=== PATIENT | male | born 1980 | race Caucasian/White ===

== ENCOUNTER 2016-05-06 20:20 | Emergency (ER) | payer SELFPAY ==
--- NOTE | 2016-05-06 21:18 | ER Document Report ---
ED Medical Screen (RME) - General Chief Complaint: Hand Swelling Stated Complaint: SWOLLEN LEFT HAND Notes: 35 yo male c/o pain and swelling to left hand x 3 day + induration and fluctuance to left dorsal hand. + lymphangitis left volar forearm + hx/o MRSA TRAVEL OUTSIDE OF THE [place] IN LAST 30 DAYS: No - Related Data Allergies/Adverse Reactions: No Known Allergies Allergy (Verified 12/25/14 12:46) Past Medical History - Past Medical History Cardiac Medical History: Reports: Hx Hypertension - doesnt take med regularly in past 2 years Pulmonary Medical History: Denies: Hx Asthma Musculoskeltal Medical History: Reports Hx Arthritis - gout, Reports Hx Musculoskeletal Deformity, Reports Hx Musculoskeletal Trauma - Right knee Traumatic Medical History: Reports: Hx Fractures - Right knee - Immunizations Immunizations up to date: Yes Hx Diphtheria, Pertussis, Tetanus Vaccination: Yes - Not UTD Physical Exam - Vital signs Vitals: Temp Pulse Resp BP Pulse Ox 98.3 F 57 L 18 133/92 H 100 05/06/16 20:56 05/06/16 20:56 05/06/16 20:56 05/06/16 20:56 05/06/16 20:56 Course - Vital Signs Vital signs: Temp Pulse Resp BP Pulse Ox 98.3 F 57 L 18 133/92 H 100 05/06/16 20:56 05/06/16 20:56 05/06/16 20:56 05/06/16 20:56 05/06/16 20:56
[2016-05-06 21:43] LABS: ABSOLUTE EOSINOPHILS # (AUTO) 0.1 10^3/uL (0.0-0.6); ABSOLUTE LYMPHOCYTES (AUTO) 3.9 10^3/uL (0.5-4.7); ABSOLUTE NEUT (AUTO) 8.3 10^3/uL (1.7-8.2); BASOPHILS % (AUTO) 0.3 % (0-2); HEMATOCRIT 42.3 % (37.9-51.0); HEMOGLOBIN 14.4 g/dL (13.5-17.0); HGB HCT DIFFERENCE 0.9; LYMPHOCYTES % (AUTO) 29.2 % (13-45); MEAN CORPUSCULAR HEMOGLOBIN 27.8 pg (27.0-33.4); MEAN CORPUSCULAR VOLUME 82 fl (80-97); MONOCYTES % (AUTO) 7.4 % (3-13); RED BLOOD COUNT 5.18 10^6/uL (4.35-5.55); RED CELL DISTRIBUTION WIDTH 14.3 % (11.5-14.0); SEGMENTED NEUTROPHILS % (AUTO) 62.1 % (42-78); WHITE BLOOD COUNT 13.4 10^3/uL (4.0-10.5)
[2016-05-07] MEDS ORDERED: SULFAMETHOXAZOLE/TRIMETHOPRIM 800-160 MG TABLET PO ONE (00:49)
[2016-05-07] MEDS ORDERED: CEPHALEXIN 500 MG CAPSULE PO ONE (00:49)
[2016-05-07] MEDS ORDERED: COLCHICINE 0.6 MG TABLET PO ONE ×2 (00:49→00:50)
[2016-05-07] MEDS ORDERED: HYDROCODONE/ACETAMINOPHEN 5-325 MG 6 TAB/DSPK PO PRN (00:53)
--- NOTE | 2016-05-07 00:54 | ER Document Report ---
ED General - General Chief Complaint: Abscess Stated Complaint: SWOLLEN LEFT HAND Notes: Patient is a 35-year-old male with past medical history of hypertension who presents with 3 days of a progressively worsening area of swelling and erythema on his left hand. The area became larger today and he began to notice spreading redness up his arm which is what prompted him to come to the emergency department today. States he does have a history of MRSA in the past. He has not had any constitutional symptoms or fever. He does describe areas being painful and that pain is described as a severe, constant, sharp pain. Nothing improves the pain and touching the area worsens the pain. He has not seen his primary care doctor regarding today's concern. TRAVEL OUTSIDE OF THE [place] IN LAST 30 DAYS: No - Related Data Allergies/Adverse Reactions: No Known Allergies Allergy (Verified 12/25/14 12:46) Past Medical History - General Information source: Patient - Social History Smoking Status: Never Smoker Chew tobacco use (# tins/day): No Frequency of alcohol use: Rare Drug Abuse: None Lives with: Spouse/Significant other Family History: CAD, Hypertension Patient has suicidal ideation: No Patient has homicidal ideation: No - Past Medical History Cardiac Medical History: Reports: Hx Hypertension - doesnt take med regularly in past 2 years Pulmonary Medical History: Denies: Hx Asthma Renal/ Medical History: Denies: Hx Peritoneal Dialysis Musculoskeltal Medical History: Reports Hx Arthritis - gout, Reports Hx Musculoskeletal Deformity, Reports Hx Musculoskeletal Trauma - Right knee Traumatic Medical History: Reports: Hx Fractures - Right knee - Immunizations Immunizations up to date: Yes Hx Diphtheria, Pertussis, Tetanus Vaccination: Yes - Not UTD Review of Systems - Review of Systems Notes: Constitutional: Negative for fever. HENT: Negative for sore throat. Eyes: Negative for visual changes. Cardiovascular: Negative for chest pain. Respiratory: Negative for shortness of breath. Gastrointestinal: Negative for abdominal pain, vomiting or diarrhea. Genitourinary: Negative for dysuria. Musculoskeletal: Negative for back pain. Skin: Positive for rash. Neurological: Negative for headaches, weakness or numbness. 10 point ROS negative except as marked above and in HPI. Physical Exam - Vital signs Vitals: Temp Pulse Resp BP Pulse Ox 98.3 F 57 L 18 133/92 H 100 05/06/16 20:56 05/06/16 20:56 05/06/16 20:56 05/06/16 20:56 05/06/16 20:56 Interpretation: Bradycardic Notes: PHYSICAL EXAMINATION: GENERAL: Well-appearing, well-nourished and in no acute distress. HEAD: Atraumatic, normocephalic. EYES: Pupils equal round and reactive to light, extraocular movements intact, sclera anicteric, conjunctiva are normal. ENT: nares patent, oropharynx clear without exudates. Moist mucous membranes. NECK: Normal range of motion, supple without lymphadenopathy LUNGS: Breath sounds clear to auscultation bilaterally and equal. No wheezes rales or rhonchi. HEART: Regular rate and rhythm without murmurs ABDOMEN: Soft, nontender, normoactive bowel sounds. No guarding, no rebound. No masses appreciated. EXTREMITIES: Normal range of motion, no pitting or edema. No cyanosis. NEUROLOGICAL: No focal neurological deficits. Moves all extremities spontaneously and on command. PSYCH: Normal mood, normal affect. SKIN: Warm, Dry, normal turgor, there is a 1 x 2 fluctuant mass on the dorsal surface of the left hand between the thumb and first digit. There is a spreading redness up the proximal one third of the forearm Course - Re-evaluation Re-evalutation: 05/07/16 00:51 Patient presents with a left dorsal hand abscess which was incised and drained at the bedside. He does have a cellulitis that is spreading up the proximal one third of the forearm. He will be started on cephalexin and TMP-SMX. Patient is also complaining of gout in his right toe. He was started on colchicine. I do not suspect a septic joint based on exam and history.At this time will discharge with return precautions and follow-up recommendations. Verbal discharge instructions given a the bedside and opportunity for questions given. Medication warnings reviewed. Patient is in agreement with this plan and has verbalized understanding of return precautions and the need for primary care follow-up in the next 24-72 hours. - Vital Signs Vital signs: Temp Pulse Resp BP Pulse Ox 98.4 F 62 16 128/68 H 99 05/07/16 01:17 05/07/16 01:17 05/07/16 01:17 05/07/16 01:17 05/07/16 01:17 - Laboratory Result Diagrams: 05/06/16 21:25 Laboratory results interpreted by me: 05/06/16 21:25 WBC 13.4 H RDW 14.3 H Absolute Neutrophils 8.3 H Procedures - Incision and Drainage Left Hand Type: Simple Anesthetic type: 1% Lidocaine mL's of anesthetic: 4 Blade size: 11 I&D procedure: Betadine prep applied Incision Method: Incision made by scalpel Amount/type of drainage: 10 mL of purulent drainage Discharge - Discharge Clinical Impression: Abscess of left hand, Left arm cellulitis Condition: Good Disposition: HOME, SELF-CARE Additional Instructions: The rash is likely due to infection of your skin. You need to take the antibiotics as prescribed. Do not stop even if the rash goes away until you have completed all the antibiotics. The area of redness was traced out here in the emergency department with a marking pen. You need to return to emergency department if the redness spreads outside of this area by more than 2 cm in any direction. You should also return if you develop fevers with temperature greater than 101, persistent vomiting, worsening pain, or have any other symptoms that are concerning to you. Prescriptions: Cephalexin Monohydrate [Keflex 500 mg Capsule] 500 mg PO QID #20 capsule Sulfamethoxazole/Trimethoprim [Bactrim Ds Tablet] 2 tab PO BID #20 tablet
[2016-05-07 02:46] VITALS: BP 128/68
== END 2016-05-07 01:20 | disposition home or self-care (01) ==
LOC: ER 20:20
PROC: 0H9GXZZ Drainage of Left Hand Skin, External Approach (ICD-10-PCS; principal; 2016-05-06)
DX: L02.512 Cutaneous abscess of left hand (principal); L03.114 Cellulitis of left upper limb; Z86.14 Personal history of Methicillin resistant Staphylococcus aureus infection; M10.9 Gout, unspecified; R00.1 Bradycardia, unspecified; I10 Essential (primary) hypertension
CPT/HCPCS: 36415; 85025; 99283

== ENCOUNTER 2016-10-20 12:19 | Emergency (ER) | payer SELFPAY ==
--- NOTE | 2016-10-20 13:27 | RADIOLOGY REPORT (SQ) ---
EXAM DESCRIPTION: FOOT RIGHT COMPLETE COMPLETED DATE/TIME: 10/20/2016 12:49 pm REASON FOR STUDY: right heel pain COMPARISON: None. 01/19/2008 NUMBER OF VIEWS: Three views. TECHNIQUE: AP, lateral and oblique without weight bearing radiographic images acquired of the right foot. LIMITATIONS: None. FINDINGS: MINERALIZATION: Normal. BONES: No acute fracture or dislocation. No worrisome bone lesions. Plantar enthesophyte. JOINTS: No erosions. No darrick-articular osteopenia. No chondrocalcinosis. SOFT TISSUES: No swelling. No calcifications. OTHER: No other significant finding. IMPRESSION: NEGATIVE STUDY OF THE RIGHT FOOT. NO EXPLANATION FOR PAIN. TECHNICAL DOCUMENTATION: JOB ID: [id number] [employer]- All Rights Reserved
[2016-10-20 13:46] VITALS: BP 126/80
--- NOTE | 2016-10-20 13:46 | ER Document Report ---
ED Extremity Problem, Lower - General Chief Complaint: Foot Pain Stated Complaint: RIGHT FOOT PAIN Time Seen by Provider: 10/20/16 12:29 Mode of Arrival: Ambulatory Information source: Patient Notes: 36-year-old male presents to ED for complaint of right heel pain. He states he jumped off of a walk board yesterday from about 4 feet landing on his heels and has had pain since. TRAVEL OUTSIDE OF THE [place] IN LAST 30 DAYS: No - HPI Patient complains to provider of: Injury, Pain. No: Swelling Location: Foot - Right heel Occurred: Yesterday Where: Public place Onset/Duration: Gradual, Persistent Quality of pain: Sharp Severity: Mild Pain Level: 2 Context: Other - Jumped off a wall board yesterday landing on his feet Recent injury: Possibly Associated symptoms: Painful ambulation Exacerbated by: Movement, Walking Relieved by: Elevation, Ice, Rest - Related Data Allergies/Adverse Reactions: No Known Allergies Allergy (Verified 12/25/14 12:46) Past Medical History - General Information source: Patient - Social History Smoking Status: Never Smoker Cigarette use (# per day): No Chew tobacco use (# tins/day): No Smoking Education Provided: No Frequency of alcohol use: None Drug Abuse: None Lives with: Parents Family History: CAD, Hypertension Patient has suicidal ideation: No Patient has homicidal ideation: No - Past Medical History Cardiac Medical History: Reports: Hx Heart Attack, Hx Hypertension - doesnt take med regularly in past 2 years Pulmonary Medical History: Reports: None EENT Medical History: Reports: None Neurological Medical History: Reports: None Endocrine Medical History: Reports: None Renal/ Medical History: Reports: None Malignancy Medical History: Reports None GI Medical History: Reports: None Musculoskeltal Medical History: Reports Hx Arthritis - gout, Reports Hx Musculoskeletal Deformity, Reports Hx Musculoskeletal Trauma - Right knee Skin Medical History: Reports None Psychiatric Medical History: Reports: None Traumatic Medical History: Reports: Hx Fractures - Right knee Infectious Medical History: Reports: None Past Surgical History: Reports: Hx Cardiac Catheterization - Immunizations Immunizations up to date: Yes Hx Diphtheria, Pertussis, Tetanus Vaccination: Yes - Not UTD Review of Systems - Review of Systems Constitutional: No symptoms reported EENT: No symptoms reported Cardiovascular: No symptoms reported Respiratory: No symptoms reported Gastrointestinal: No symptoms reported Genitourinary: No symptoms reported Male Genitourinary: No symptoms reported Musculoskeletal: Other - Pain in right heel Skin: No symptoms reported Hematologic/Lymphatic: No symptoms reported Neurological/Psychological: No symptoms reported -: Yes All other systems reviewed and negative Physical Exam - Vital signs Vitals: Temp Pulse Resp BP Pulse Ox 97.7 F 74 12 165/87 H 97 10/20/16 12:30 10/20/16 12:30 10/20/16 12:30 10/20/16 12:30 10/20/16 12:30 Interpretation: Normal - General General appearance: Appears well, Alert - HEENT Head: Normocephalic, Atraumatic Eyes: Normal Pupils: PERRL - Respiratory Respiratory status: No respiratory distress Chest status: Nontender Breath sounds: Normal Chest palpation: Normal - Cardiovascular Rhythm: Regular Heart sounds: Normal auscultation Murmur: No - Abdominal Inspection: Normal Distension: No distension Bowel sounds: Normal Tenderness: Nontender Organomegaly: No organomegaly - Back Back: Normal, Nontender - Extremities General upper extremity: Normal inspection, Nontender, Normal color, Normal ROM , Normal temperature General lower extremity: Normal inspection, Normal color, Normal ROM, Normal temperature, Normal weight bearing. No: Coy's sign Ankle: No: Tender, Abrasion, Deformity, Ecchymosis, Edema, Instability, Laceration, Limited ROM, Positive Mendes's test, Unable to bear weight Foot: Tender, No evidence of FB. No: Abrasion, Deformity, Ecchymosis, Edema, Instability, Laceration, Metatarsal compress. pain, Nail injury, Navicular tenderness, Puncture wound, Tender 5th metatarsal, Unable to bear weight - Neurological Neuro grossly intact: Yes Cognition: Normal Orientation: AAOx4 Дмитрий Coma Scale Eye Opening: Spontaneous [place] Coma Scale Verbal: Oriented [place] Coma Scale Motor: Obeys Commands Дмитрий Coma Scale Total: 15 Speech: Normal Motor strength normal: LUE, RUE, LLE, RLE Sensory: Normal - Psychological Associated symptoms: Normal affect, Normal mood - Skin Skin Temperature: Warm Skin Moisture: Dry Skin Color: Normal Course - Re-evaluation Re-evalutation: 10/20/16 22:30 Discussed x-ray with patient and written report given to patient to follow-up with orthopedics or a sample worker. Patient was discharged home. - Vital Signs Vital signs: Temp Pulse Resp BP Pulse Ox 98.5 F 59 L 14 126/80 H 97 10/20/16 13:43 10/20/16 13:43 10/20/16 13:43 10/20/16 13:43 10/20/16 13:43 - Diagnostic Test Radiology reviewed: Image reviewed, Reports reviewed Discharge - Discharge Clinical Impression: Right foot pain Contusion Qualifiers: Encounter type: initial encounter Contusion area: foot Laterality: right Qualified Code(s): S90.31XA - Contusion of right foot, initial encounter Condition: Stable Disposition: HOME, SELF-CARE Instructions: Exercises for the Foot Muscles ([facility]) Additional Instructions: CONTUSION: Your injury has resulted in a contusion -- a crushing of the deep tissues. No injury to important structures was detected during the physician's exam. Contusions vary in the amount of pain they cause, and in the length of time required for healing. Typically, the area will become bruised, and will remain painful to touch for two or three weeks. However, most patients are back to working and playing within a few days. After the initial period of rest and cold-packs, your symptoms (together with the doctor's recommendations) will determine how rapidly you can get back to full activity. Usually this means "do what feels okay, but don't do things that hurt." If re-examination was recommended, it's important to follow up as instructed. Call the doctor or return any time if pain increases, if swelling becomes severe, if you develop numbness or weakness in an injured extremity, or if any other alarming symptoms occur. USE OF TYLENOL (ACETAMINOPHEN): Acetaminophen may be taken for pain relief or fever control. It's much safer than aspirin, offering a wider range of "safe" dosages. It is safe during . Some brand names are Tylenol, Panadol, Datril, Anacin 3, Tempra, and Liquiprin. Acetaminophen can be repeated every four hours. The following are maximum recommended dosages: WEIGHT Dose Drops Elixir Chewable( 80mg) (LBS.) drprs=droppers tsp=teaspoon 6 40 mg 0.4 ml (1/2) 6-11 80 mg 0.8 ml (full) tsp 1 tab 12-16 120 mg 1 1/2 drprs 3/4 tsp 1 1/2 tabs 17-23 160 mg 2 drprs 1 tsp 2 tabs 24-30 240 mg 3 drprs 1 1/2 tsp 3 tabs 30-35 320 mg 2 tsp 4 tabs 36-41 360 mg 2 1/4 tsp 4 1/2 tabs 42-47 400 mg 2 1/2 tsp 5 tabs 48-53 480 mg 3 tsp 6 tabs 54-59 520 mg 3 1/4 tsp 6 1/2 tabs 60-64 560 mg 3 1/2 tsp 7 tabs 65-70 600 mg 3 3/4 tsp 7 1/2 tabs 71-76 640 mg 4 tsp 8 tabs 77-82 720 mg 4 1/2 tsp 9 tabs 83-88 800 mg 5 tsp 10 tabs >89 pounds or adults 650 mg to 900 mg Acetaminophen can be repeated every four hours. Maximum dose not to exceed 4000 mg a day. These maximum recommended dosages are slightly higher than the dosages written on the product container, but these dosages are very safe and below the toxic dosage for acetaminophen. ICE & ELEVATION: Apply ice packs frequently against the painful area. Many different schedules are recommended, such as "20 minutes on, 20 minutes off" or "one hour ice, two hours rest." If you need to work, you may need to go longer between ice treatments. You should plan to have the area ice packed AT LEAST one- fourth of the time. The ice should be applied over the wrap, tape, or splint, or over a layer of cloth -- not directly against the skin. Some ice bags have a built-in cloth and can be put directly on the skin. Your injured part should be elevated as much as possible over the next 48 hours. Try to keep the injury above the level of the heart. Avoid use of the injured area. Elevation and rest will decrease the swelling. USE OF [id number] IBUPROFEN: Ibuprofen (Advil, Nuprin, Medipren, Motrin IB) is a medication for fever and pain control. In addition, it has anti- inflammatory effects which may be beneficial, especially in the treatment of injuries. It's best to take ibuprofen with food. Persons with ulcer disease or allergy to aspirin should notify their physician of this before taking ibuprofen. Ibuprofen can be given every four to six hours, for a total of four doses daily. Age Pain or fever dose Antiinflammatory dose 6-8 yr 200 mg (1 tab) 200 mg (1 tab) 9-11 yr 200 mg (1 tab) 200-400 mg (1-2 tab) 11-14 yr 200-400 mg (1-2 tab) 400 mg (2 tab) 15-adult 400 mg (2 tab) 600 mg (3 tab) FOLLOW-UP CARE: If you have been referred to a physician for follow-up care, call the physician s office for an appointment as you were instructed or within the next two days. If you experience worsening or a significant change in your symptoms, notify the physician immediately or return to the Emergency Department at any time for re-evaluation. Prescriptions: Ibuprofen 800 mg PO Q8HP PRN #20 tablet PRN Reason: Forms: Elevated Blood Pressure Referrals: SYDNEY FINN MD [Primary Care Provider] - Follow up as needed
== END 2016-10-20 13:50 | disposition home or self-care (01) ==
LOC: ER 12:19
DX: S90.31XA Contusion of right foot, initial encounter (principal); M79.671 Pain in right foot; W17.89XA Other fall from one level to another, initial encounter; Y92.89 Other specified places as the place of occurrence of the external cause; I25.2 Old myocardial infarction
CPT/HCPCS: 99283

== ENCOUNTER 2017-05-04 09:18 | Observation (INO) | payer SELFPAY ==
[2017-05-04] MEDS ORDERED: ONDANSETRON HCL INJ/PF 4 MG/2 ML SDV IV ONE (10:12)
--- NOTE | 2017-05-04 10:14 | ER Document Report ---
ED Medical Screen (RME) - General Chief Complaint: Abdominal Pain Stated Complaint: STOMACH PAIN Time Seen by Provider: 05/04/17 10:09 Notes: RME DISCLOSURE I have seen this patient as part of a Rapid Medical Evaluation and, if applicable, placed any initially appropriate orders. The patient will be seen and fully evaluated, including a full history and physical exam, by a provider ( in Main ED or Fast Track) when a room becomes available. 36-year-old male here with complaints of periumbilical pain that started yesterday along with nausea and vomiting but no diarrhea. Since onset, the pain has migrated from around the bellybutton down to the right lower quadrant. Pain is constant. Pain is worse with walking and laying flat as well as the bumps/potholes in the road during the car ride over. His pain is no longer near his belly button at this time and is now in his right lower quadrant. He does still have his appendix. TRAVEL OUTSIDE OF THE [place] IN LAST 30 DAYS: No - Related Data Allergies/Adverse Reactions: No Known Allergies Allergy (Verified 12/25/14 12:46) Past Medical History - Social History Chew tobacco use (# tins/day): No Frequency of alcohol use: Social Drug Abuse: Cocaine - Past Medical History Cardiac Medical History: Reports: Hx Heart Attack - x2 08/2016, Hx Hypertension - doesnt take med regularly in past 2 years Pulmonary Medical History: Denies: Hx Asthma Renal/ Medical History: Denies: Hx Peritoneal Dialysis Musculoskeltal Medical History: Reports Hx Arthritis - gout, Reports Hx Musculoskeletal Deformity, Reports Hx Musculoskeletal Trauma - Right knee Traumatic Medical History: Reports: Hx Fractures - Right knee Past Surgical History: Reports: Hx Cardiac Catheterization - Immunizations Immunizations up to date: Yes Hx Diphtheria, Pertussis, Tetanus Vaccination: Yes - Not UTD Physical Exam - Vital signs Vitals: Temp Pulse Resp BP Pulse Ox 98.1 F 83 20 141/90 H 97 05/04/17 09:21 05/04/17 09:21 05/04/17 09:21 05/04/17 09:21 05/04/17 09:21 Course - Vital Signs Vital signs: Temp Pulse Resp BP Pulse Ox 98.1 F 83 20 141/90 H 97 05/04/17 09:21 05/04/17 09:21 05/04/17 09:21 05/04/17 09:21 05/04/17 09:21
[2017-05-04] MEDS ORDERED: NORMAL SALINE 1000 ML 1,000 ML IV ONE ×2 (10:39→12:52)
[2017-05-04 10:47] LABS: APPEARANCE,URINE CLEAR; BILIRUBIN,URINE NEGATIVE (NEGATIVE); COLOR,URINE YELLOW; GLUCOSE, URINE NEGATIVE (NEGATIVE); KETONES,URINE NEGATIVE (NEGATIVE); LEUKOCYTE ESTERASE,URINE NEGATIVE (NEGATIVE); NITRITE,URINE NEGATIVE (NEGATIVE); PROTEIN,URINE NEGATIVE (NEGATIVE); URINE SPECIFIC GRAVITY 1.018; UROBILINOGEN,URINE NEGATIVE mg/dL (<2.0)
[2017-05-04] MEDS ORDERED: VECURONIUM BROMIDE INJ 10 MG VIAL IV ONE (10:49)
[2017-05-04] MEDS ORDERED: NEOSTIGMINE METHYLSULFATE 10 MG/10 ML VIAL ONE (10:49)
[2017-05-04] MEDS ORDERED: GLYCOPYRROLATE INJ 0.4 MG/2 ML VIAL ONE (10:49)
[2017-05-04] MEDS ORDERED: SUCCINYLCHOLINE CHLORIDE INJ 200 MG/10 ML VIAL ONE (10:49)
[2017-05-04 11:42] LABS: ABSOLUTE BASOPHILS # (AUTO) 0.1 10^3/uL (0.0-0.2); ABSOLUTE LYMPHOCYTES (AUTO) 1.6 10^3/uL (0.5-4.7); ABSOLUTE MONOCYTES (AUTO) 0.9 10^3/uL (0.1-1.4); ABSOLUTE NEUT (AUTO) 10.7 10^3/uL (1.7-8.2); BASOPHILS % (AUTO) 0.4 % (0-2); EOSINOPHILS % (AUTO) 0.3 % (0-6); HEMATOCRIT 38.7 % (37.9-51.0); HEMOGLOBIN 13.4 g/dL (13.5-17.0); LYMPHOCYTES % (AUTO) 11.8 % (13-45); MEAN CORPUSCULAR HEMOGLOBIN 28.2 pg (27.0-33.4); MEAN CORPUSCULAR HGB CONC 34.7 g/dL (32.0-36.0); MEAN CORPUSCULAR VOLUME 81 fl (80-97); MONOCYTES % (AUTO) 6.5 % (3-13); PLATELET COUNT 249 10^3/uL (150-450); RED BLOOD COUNT 4.76 10^6/uL (4.35-5.55); RED CELL DISTRIBUTION WIDTH 14.5 % (11.5-14.0); TOTAL CELLS COUNTED % (AUTO) 100 %; WHITE BLOOD COUNT 13.2 10^3/uL (4.0-10.5)
[2017-05-04 12:03] LABS: ALANINE AMINOTRANSFERASE 28 U/L (21-72); ALKALINE PHOSPHATASE 74 U/L (38-126); ANION GAP 8 (5-19); ASPARTATE AMINO TRANSFERASE 16 U/L (17-59); BILIRUBIN,DIRECT 0.3 mg/dL (0.0-0.4); BILIRUBIN,TOTAL 0.7 mg/dL (0.2-1.3); BLOOD UREA NITROGEN 10 mg/dL (7-20); CALCIUM 9.5 mg/dL (8.4-10.2); CARBON DIOXIDE 29 mmol/L (22-30); CHLORIDE 101 mmol/L (98-107); GLUCOSE 97 mg/dL (75-110); LIPASE 55.4 U/L (23-300); POTASSIUM 3.6 mmol/L (3.6-5.0); SODIUM 138.4 mmol/L (137-145); TOTAL PROTEIN 6.9 g/dL (6.3-8.2)
--- NOTE | 2017-05-04 12:06 | ER Document Report ---
ED GI/ - General Chief Complaint: Abdominal Pain Stated Complaint: STOMACH PAIN Time Seen by Provider: 05/04/17 10:09 Mode of Arrival: Ambulatory Information source: Patient Notes: 36-year-old male complaining of yesterday onset of periumbilical abdominal pain , nausea, decreased appetite. The pain persisted and radiated to the right lower quadrant. He has had vomiting. No diarrhea or constipation. No fever. He still has his appendix. No hematuria or testicular pain. Recent IV cocaine use. TRAVEL OUTSIDE OF THE [place] IN LAST 30 DAYS: No - Related Data Allergies/Adverse Reactions: No Known Allergies Allergy (Verified 12/25/14 12:46) Past Medical History - General Information source: Patient - Social History Smoking Status: Never Smoker Chew tobacco use (# tins/day): No Frequency of alcohol use: Social Drug Abuse: Cocaine Lives with: Family Family History: CAD, Hypertension Patient has suicidal ideation: No Patient has homicidal ideation: No - Past Medical History Cardiac Medical History: Reports: Hx Heart Attack - x2 08/2016, Hx Hypertension - doesnt take med regularly in past 2 years Renal/ Medical History: Denies: Hx Peritoneal Dialysis Musculoskeltal Medical History: Reports Hx Arthritis - gout, Reports Hx Musculoskeletal Deformity, Reports Hx Musculoskeletal Trauma - Right knee Traumatic Medical History: Reports: Hx Fractures - Right knee Past Surgical History: Reports: Hx Cardiac Catheterization - Immunizations Immunizations up to date: Yes Hx Diphtheria, Pertussis, Tetanus Vaccination: Yes - Not UTD Review of Systems - Review of Systems Constitutional: No symptoms reported EENT: No symptoms reported Cardiovascular: No symptoms reported Respiratory: No symptoms reported Gastrointestinal: See HPI Genitourinary: No symptoms reported Male Genitourinary: No symptoms reported Musculoskeletal: No symptoms reported Skin: No symptoms reported Hematologic/Lymphatic: No symptoms reported Neurological/Psychological: No symptoms reported Physical Exam - Vital signs Vitals: Temp Pulse Resp BP Pulse Ox 98.1 F 83 20 141/90 H 97 05/04/17 09:21 05/04/17 09:21 05/04/17 09:21 05/04/17 09:21 05/04/17 09:21 Interpretation: Normal - General General appearance: Appears well, Alert - HEENT Head: Normocephalic, Atraumatic Eyes: Normal Conjunctiva: Normal Pupils: PERRL Mucous membranes: Normal Pharynx: Normal Neck: Supple. No: Lymphadenopathy, Thyromegally - Respiratory Respiratory status: No respiratory distress Chest status: Nontender Breath sounds: Normal Chest palpation: Normal - Cardiovascular Rhythm: Regular Heart sounds: Normal auscultation Murmur: No - Abdominal Inspection: Normal Distension: No distension Bowel sounds: Normal Tenderness: McBurney's point, Guarding Organomegaly: No organomegaly. No: Hepatomegaly, Splenomegaly - Back Back: Normal, Nontender. No: CVA tenderness - Extremities General upper extremity: Normal inspection, Nontender, Normal color, Normal ROM , Normal temperature General lower extremity: Normal inspection, Nontender, Normal color, Normal ROM , Normal temperature, Normal weight bearing. No: Coy's sign - Neurological Neuro grossly intact: Yes Cognition: Normal Orientation: AAOx4 Дмитрий Coma Scale Eye Opening: Spontaneous [place] Coma Scale Verbal: Oriented [place] Coma Scale Motor: Obeys Commands [place] Coma Scale Total: 15 Speech: Normal Motor strength normal: LUE, RUE, LLE, RLE Sensory: Normal - Psychological Associated symptoms: Normal affect, Normal mood - Skin Skin Temperature: Warm Skin Moisture: Dry Skin Color: Normal Skin irregularity: negative: Rash Course - Re-evaluation Re-evalutation: 05/04/17 12:45 CT acute appendicitis. dr clark called and will admit the pt, take to surgery. - Vital Signs Vital signs: Temp Pulse Resp BP Pulse Ox 98.6 F 60 12 135/80 H 100 05/04/17 17:19 05/04/17 17:19 05/04/17 17:19 05/04/17 17:19 05/04/17 17:19 - Laboratory Result Diagrams: 05/04/17 11:32 05/04/17 11:32 Laboratory results interpreted by me: 05/04/17 05/04/17 05/04/17 10:14 11:32 11:32 WBC 13.2 H Hgb 13.4 L RDW 14.5 H Seg Neutrophils % 81.0 H Lymphocytes % 11.8 L Absolute Neutrophils 10.7 H AST 16 L Urine Blood SMALL H Discharge - Discharge Clinical Impression: Acute appendicitis Qualifiers: Acute appendicitis type: with localized peritonitis Qualified Code(s): K35.3 - Acute appendicitis with localized peritonitis Condition: Stable Disposition: ADMITTED INPATIENT Admitting Provider: Surgicalist Unit Admitted: Surgical Floor
--- NOTE | 2017-05-04 12:33 | RADIOLOGY REPORT (SQ) ---
EXAM DESCRIPTION: CT ABD/PELVIS WITH IV ONLY COMPLETED DATE/TIME: 05/04/2017 12:23 pm REASON FOR STUDY: RLQ pain; eval appendicitis COMPARISON: None. TECHNIQUE: CT scan of the abdomen and pelvis performed using helical scanning technique with dynamic intravenous contrast injection. No oral contrast. Images reviewed with lung, soft tissue, and bone windows. Reconstructed coronal and sagittal MPR images reviewed. Delayed images for evaluation of the urinary system also acquired. All images stored on PACS. All CT scanners at this facility use dose modulation, iterative reconstruction, and/or weight based d osing when appropriate to reduce radiation dose to as low as reasonably achievable (ALARA). [facility]: Dose Right [facility]: CareDose [facility]: Dose Right [facility]: Teradose 4D [facility]: [employer] CONTRAST TYPE AND DOSE: contrast/concentration: Isovue 370.00 mg/ml; Total Contrast Delivered: 99.0 ml; Total Saline Delivered: 67.1 ml RENAL FUNCTION: GFR > 60. RADIATION DOSE: CT Rad equipment meets quality standard of care and radiation dose reduction techniq ues were employed. CTDIvol: 9.4 - 13.2 mGy. DLP: 1282 mGy-cm.. LIMITATIONS: None. FINDINGS: LOWER CHEST: No significant findings. No nodules or infiltrates. LIVER: Normal size. No masses. No dilated ducts. SPLEEN: Normal size. No focal lesions. PANCREAS: No masses. No significant calcifications. No adjacent inflammation or peripancreatic fluid collections. Pancreatic duct not dilated. GALLBLADDER: No identified stones by CT criteria. No inflammatory changes to suggest cholecystitis. ADRENAL GLANDS: No significant masses or asymmetry. RIGHT KIDNEY AND URETER: No solid masses. No significant calcifications. No hydronephrosis or hyd roureter. LEFT KIDNEY AND URETER: No solid masses. No significant calcifications. No hydronephrosis or hydr oureter. AORTA AND VESSELS: No aneurysm. No dissection. Renal arteries, SMA, celiac without stenosis. RETROPERITONEUM: No retroperitoneal adenopathy, hemorrhage or masses. BOWEL AND PERITONEAL CAVITY: Mesenteric inflammation surrounding dilated appendix containing an appen dicolith. No ascites or free air. APPENDIX: See above. PELVIS: Small amount of free fluid. ABDOMINAL WALL: No masses. No hernias. BONES: No significant or acute findings. OTHER: No other significant finding. IMPRESSION: Acute appendicitis. TECHNICAL DOCUMENTATION: JOB ID: [id number] Quality ID # [id number]: Final reports with documentation of one or more dose reduction techniques (e.g., Au tomated exposure control, adjustment of the mA and/or kV according to patient size, use of iterative reconstruction technique) 2010 [employer]- All Rights Reserved Reading location - IP/workstation name: [email or web address]
[2017-05-04] MEDS ORDERED: FENTANYL CITRATE INJ/PF 100 MCG/2 ML AMPUL IV ONE (12:55)
[2017-05-04] MEDS ORDERED: ERTAPENEM SODIUM INJ 1 GM VIAL IV ONE (13:33)
--- NOTE | 2017-05-04 13:39 | PDOC H&P ---
History of Present Illness Patient complains of: Abdominal pain. History of Present Illness: GERA DAVIDSON is a 36 year old male presenting with acute onset of periumbilical pain that began yesterday along with nausea and vomiting that localized to the right lower quadrant last night. The pain has been persistent overnight and the patient presented to the ER for evaluation. Patient denies any fever. Denies any diarrhea. Denies any prior history of this sort of abdominal pain. There is no family history of colon cancer. There is no bowel habit changes noted in the last several months. Patient notes that the pain is worsened with certain types of movements especially jostling types of motion. Patient has had anorexia. He has a history of myocardial infarction in the summer of last year status post cardiac catheterization. He had been placed on Plavix Lipitor and lisinopril but due to his insurance running out he has not been on these medications for the last several months. Patient denies any exercise intolerance nor chest pain in the last several months. Past Medical History Cardiac Medical History: Reports: Myocardial Infarction - x2 08/2016, Hypertension - doesnt take med regularly in past 2 years Pulmonary Medical History: Denies: Asthma Musculoskeltal Medical History: Reports: Arthritis - gout Past Surgical History Past Surgical History: Reports: Cardiac Catheterization Social History Lives with: Family Smoking Status: Never Smoker Frequency of Alcohol Use: Occasional Hx Recreational Drug Use: Yes Drugs: Cocaine Family History Family History: CAD, Hypertension Parental Family History Reviewed: Yes Children Family History Reviewed: No Sibling(s) Family History Reviewed.: No Medication/Allergy Home Medications: No Home Medications 05/04/17 Allergies/Adverse Reactions: No Known Allergies Allergy (Verified 12/25/14 12:46) Physical Exam Vital Signs: Temp Pulse Resp BP Pulse Ox 98.1 F 83 20 141/90 H 97 05/04/17 09:21 05/04/17 09:21 05/04/17 09:21 05/04/17 09:21 05/04/17 09:21 Intake & Output 05/03/17 05/04/17 05/05/17 06:59 06:59 06:59 Weight 92.9 kg General appearance: PRESENT: no acute distress, cooperative Neck exam: PRESENT: other - Supple with no abnormal masses nor tenderness. Respiratory exam: PRESENT: clear to auscultation osito Cardiovascular exam: PRESENT: RRR GI/Abdominal exam: PRESENT: other - Soft, nondistended, focal tenderness to palpation the right lower quadrant with guarding and rebound. Extremities exam: PRESENT: other - No swelling and no tenderness. Neurological exam: PRESENT: alert, awake Psychiatric exam: PRESENT: appropriate affect Skin exam: PRESENT: warm Results Laboratory Results: 05/04/17 11:32 05/04/17 11:32 05/04/17 05/04/17 05/04/17 10:14 11:32 11:32 WBC 13.2 H RBC 4.76 Hgb 13.4 L Hct 38.7 MCV 81 MCH 28.2 MCHC 34.7 RDW 14.5 H Plt Count 249 Seg Neutrophils % 81.0 H Lymphocytes % 11.8 L Monocytes % 6.5 Eosinophils % 0.3 Basophils % 0.4 Absolute Neutrophils 10.7 H Absolute Lymphocytes 1.6 Absolute Monocytes 0.9 Absolute Eosinophils 0.0 Absolute Basophils 0.1 Sodium 138.4 Potassium 3.6 Chloride 101 Carbon Dioxide 29 Anion Gap 8 BUN 10 Creatinine 0.84 Est GFR ( Amer) > 60 Est GFR (Non-Af Amer) > 60 Glucose 97 Calcium 9.5 Total Bilirubin 0.7 AST 16 L ALT 28 Alkaline Phosphatase 74 Total Protein 6.9 Albumin 4.0 Lipase 55.4 Urine Color YELLOW Urine Appearance CLEAR Urine pH 8.0 Ur Specific [place] 1.018 Urine Protein NEGATIVE Urine Glucose (UA) NEGATIVE Urine Ketones NEGATIVE Urine Blood SMALL H Urine Nitrite NEGATIVE Ur Leukocyte Esterase NEGATIVE Urine WBC (Auto) 1 Urine RBC (Auto) 3 Impressions: Abdomen/Pelvis CT 05/04/17 10:12 IMPRESSION: Acute appendicitis. Assessment & Plan - Diagnosis (1) Acute appendicitis Qualifiers: Acute appendicitis type: with localized peritonitis Qualified Code(s): K35.3 - Acute appendicitis with localized peritonitis Is this a current diagnosis for this admission?: Yes Plan: Plan laparoscopic appendectomy. I have had a discussion with the patient concerning the risk and benefits of the procedure including risk of heart and lung complications especially with a history of myocardial infarction last year. I will do a preoperative EKG. I have also discussed with him possibility of conversion to an open procedure, bleeding, infection, adjacent structure injury, stump leak, and mistaken diagnosis. Patient understands and agrees to proceed.
[2017-05-04] MEDS ORDERED: LIDOCAINE 2% INJ-PF (20 MG/ML) 10 ML AMPUL ONE (13:54)
[2017-05-04] MEDS ORDERED: MIDAZOLAM 2 MG/2 ML INJ ONE (13:55)
[2017-05-04] MEDS ORDERED: DEXAMETHASONE SOD PHOSPHATE INJ 4 MG/1 ML VIAL ONE (13:55)
[2017-05-04] MEDS ORDERED: FENTANYL CITRATE INJ/PF 100 MCG/2 ML AMPUL ONE (13:55)
[2017-05-04] MEDS ORDERED: ONDANSETRON HCL INJ/PF 4 MG/2 ML SDV ONE (13:55)
[2017-05-04] MEDS ORDERED: BUPIVACAINE HCL 0.25 % INJ/PF (2.5 MG/1 ML) 30 ML VIAL ONE (13:56)
[2017-05-04] MEDS ORDERED: ACETAMINOPHEN 100 ML IV ONE (13:56)
[2017-05-04] MEDS ORDERED: PROPOFOL INJ 200 MG/20 ML VIAL IV ONE (13:56)
[2017-05-04] MEDS ORDERED: PROMETHAZINE HCL INJ 25 MG/1 ML VIAL IV PRN ×2 (15:30)
[2017-05-04] MEDS ORDERED: FENTANYL CITRATE INJ/PF 100 MCG/2 ML AMPUL IV PRN ×3 (15:30)
[2017-05-04] MEDS ORDERED: OXYCODONE-ACETAMINOPHEN 5-325 MG TABLET PO PRN ×2 (15:30)
[2017-05-04] MEDS ORDERED: DIPHENHYDRAMINE HCL 50 MG/ML VIAL IV PRN (15:30)
[2017-05-04] MEDS ORDERED: MEPERIDINE HCL/PF INJ 25 MG/1 ML DISP.SYRIN IV PRN (15:30)
[2017-05-04] MEDS ORDERED: MORPHINE SULFATE 10 MG/ML INJ IV PRN (15:30)
[2017-05-04] MEDS: FENTANYL CITRATE INJ/PF 100 MCG/2 ML AMPUL ONE ×3 (16:15→16:25)
[2017-05-04] MEDS ORDERED: ONDANSETRON HCL INJ/PF 4 MG/2 ML SDV IV PRN (16:34)
--- NOTE | 2017-05-04 17:25 | EKG REPORT ---
SEVERITY:- NORMAL ECG - SINUS RHYTHM : Confirmed by: Cr Sesay MD 04-May-2017 17:24:34
[2017-05-04] MEDS: NORMAL SALINE 1000 ML 1,000 ML IV PRN (17:53)
[2017-05-04] MEDS: OXYCODONE-ACETAMINOPHEN 5-325 MG TABLET PO PRN (17:54)
[2017-05-04] MEDS ORDERED: KETOROLAC TROMETHAMINE INJ/PF 30 MG/1 ML SDV INJ PRN (22:13)
[2017-05-04] MEDS: KETOROLAC TROMETHAMINE INJ/PF 30 MG/1 ML SDV IV PRN (23:00)
--- NOTE | 2017-05-04 23:03 | PDOC PROGRESS REPORT ---
Subjective Progress Note for:: 05/04/17 Subjective:: Complain of periumbilical pain. His right lower quadrant abdominal pain is markedly improved from preop. Reason For Visit: APPENDICITIS Physical Exam Vital Signs: Temp Pulse Resp BP Pulse Ox 99.5 F 60 12 135/79 H 98 05/04/17 18:20 05/04/17 18:20 05/04/17 18:20 05/04/17 18:20 05/04/17 18:20 Intake & Output 05/03/17 05/04/17 05/05/17 06:59 06:59 06:59 Intake Total 2850 Output Total 1005 Balance 1845 General appearance: PRESENT: no acute distress, cooperative Respiratory exam: PRESENT: clear to auscultation osito Cardiovascular exam: PRESENT: RRR GI/Abdominal exam: PRESENT: other - Soft, nondistended, minimal right lower quadrant abdominal tenderness. Patient with tenderness around the supraumbilical trocar site incision. The incision is clean dry and intact. Extremities exam: PRESENT: other - No swelling Neurological exam: PRESENT: alert, awake Psychiatric exam: PRESENT: appropriate affect Results Impressions: Abdomen/Pelvis CT 05/04/17 10:12 IMPRESSION: Acute appendicitis. Assessment & Plan - Diagnosis (1) Acute appendicitis Qualifiers: Acute appendicitis type: with localized peritonitis Qualified Code(s): K35.3 - Acute appendicitis with localized peritonitis Is this a current diagnosis for this admission?: Yes Plan: Status post laparoscopic appendectomy. Other than incisional pain at the trocar site patient looks very good. Will try to manage his pain with Toradol. Will try to avoid IV narcotics as much as possible in light of his history of substance abuse.
[2017-05-05] MEDS: NORMAL SALINE 1000 ML 1,000 ML IV PRN (02:40)
[2017-05-05] MEDS: KETOROLAC TROMETHAMINE INJ/PF 30 MG/1 ML SDV IV PRN (07:58)
[2017-05-05] MEDS: OXYCODONE-ACETAMINOPHEN 5-325 MG TABLET PO PRN (10:59)
[2017-05-05 11:49] VITALS: BP 125/91
--- NOTE | 2017-05-05 23:44 | DISCHARGE SUMMARY E ---
Discharge Summary NAME: GERA DAVIDSON : 1980 AGE: 36Y ADMITTED: 05/04/2017 DISCHARGED: 05/05/2017 FINAL DIAGNOSIS: Acute appendicitis. PROCEDURE: Laparoscopic appendectomy, 05/04/2017. SURGEON: Dr. Morrison. HOSPITAL COURSE: This is a 36-year-old male who was noted to have right lower quadrant pains the night prior to being seen in the ED. CAT scan of the abdomen revealed acute appendicitis. He was then taken to the OR for laparoscopic appendectomy, which he tolerated well. This was done by Dr. Morrison on the day of admission, 05/04/2017. The next day the patient was able to tolerate a soft diet with minimal pains. All the incision sites look clean and dry. He is passing flatus. He is tolerating a soft diet. He was then discharged improved with the above final diagnosis. DISCHARGE PLAN: Patient to be followed up in the surgical clinic in 2 weeks. A prescription for Toradol 10 mg p.o. q. 8 hours p.r.n. was given to the patient. He does have a history of opioid use in the past, and we are holding narcotic pain medication for now. DICTATING PHYSICIAN: ERIN HERNANDEZ M.D. [id number] PHY#: [id number] ID: [id number] JOB#: [id number] ACCT: [id number] cc:Felix MASON F.NSonia. >
--- NOTE | 2017-05-08 00:34 | Operative Report ---
Operative Report DATE OF SURGERY: 05/04/17 PREOPERATIVE DIAGNOSIS: appendicitis POSTOPERATIVE DIAGNOSIS: appendicitis OPERATION: laparoscopic appendectomy SURGEON: STARR WOLF ANESTHESIA: GA TISSUE REMOVED OR ALTERED: appendix COMPLICATIONS: none ESTIMATED BLOOD LOSS: minimal INTRAOPERATIVE FINDINGS: distended, inflamed appendix. no perforation PROCEDURE: Informed consent obtained. pt brought to OR and placed on OR table in supine position. After satisfactory induction of general anesthesia, pt prepped and draped. Supraumbilical midline incision made and dissection carried down, entering the peritoneal cavity without difficulty. Feli trocar inserted and pneumoperitoneum produced with good pt toleration. Five mm trocar placed right upper lateral abdomen. another at left lower abdomen. The appendix appeared distended and inflamed but not perforated. lateral attachments taken down. plane created between mesoappendix and appendix. The appendix taken flush with cecum using blue load of endo CHRISTINE. Mesoappendix taken with a vascular load. Stump closure secure. Hemostasis good. Appendix removed via endobag via feli trocar site fascial defect. All trocars removed under vision of laparoscope to ensure hemostasis. Feli trocar site fascial defect closure with interrupted vicryl sutures. All skin incisions closed with interrupted subcuticular monocryl suture. Marcaine injected. Pt tolerated procedure well with no apparent complications and taken to recovery room in good condition.
== END 2017-05-05 15:30 | disposition home or self-care (01) ==
LOC: ER 09:18 → INTOOBSV 13:42 → EH 13:42 → 4S 17:22
PROVIDERS: ATTEND Surgery
PROC: 0DTJ4ZZ Resection of Appendix, Percutaneous Endoscopic Approach (ICD-10-PCS; principal; 2017-05-04 14:30)
DX: K35.3 Acute appendicitis with localized peritonitis (principal); R10.31 Right lower quadrant pain; I10 Essential (primary) hypertension; I25.2 Old myocardial infarction
CPT/HCPCS: 93005; 99285; 96361; 96374; 96375; 36415; 83690; 85025; 80053; 81001; 88304 ×2; 74177; 93010; 44970; G0378 ×2; J2250; J1100; J3010; J1335; J3490 ×2; J1885 ×2; J0330; J2405; J7030 ×2; J2704; J0131; 840

== ENCOUNTER 2017-11-04 13:11 | Emergency (ER) | payer SELFPAY ==
[2017-11-04] MEDS ORDERED: TETRACAINE HCL 0.5% OPH SOLN 0.6 ML DROPERETTE OU ONE (13:16)
[2017-11-04 13:28] VITALS: BP 123/90
--- NOTE | 2017-11-04 13:57 | ER Document Report ---
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 Eye irritated and red, watery D/C. Associated Symptoms: None Exacerbated by: Denies Relieved by: Denies - ROS ROS below otherwise negative: Yes Systems Reviewed and Negative: Yes All other systems reviewed and negative - REPRODUCTIVE Reproductive: DENIES: : Past Medical History - General Information source: Patient - Social History Smoking Status: Never Smoker Lives with: Family Family History: CAD, Hypertension - Past Medical History Cardiac Medical History: Reports: Hx Heart Attack - x2 08/2016, Hx Hypertension - doesnt take med regularly in past 2 years Musculoskeletal Medical History: Reports Hx Arthritis - gout, Reports Hx Musculoskeletal Deformity, Reports Hx Musculoskeletal Trauma - Right knee Traumatic Medical History: Reports: Hx Fractures - Right knee Past Surgical History: Reports: Hx Cardiac Catheterization - Immunizations Immunizations up to date: Yes Hx Diphtheria, Pertussis, Tetanus Vaccination: Yes - Not UTD Vertical Provider Document - CONSTITUTIONAL Agree With Documented VS: Yes Exam Limitations: No Limitations - INFECTION CONTROL TRAVEL OUTSIDE OF THE [place] IN LAST 30 DAYS: No - HEENT HEENT: Conjuctival Injection - left, PERRL, no FB, no fluorescien uptake - NEURO Level of Consciousness: Awake - DERM Integumentary: No Rash Course - Vital Signs Vital signs: Temp Pulse Resp BP Pulse Ox 98.2 F 79 16 123/90 H 98 11/04/17 13:26 11/04/17 13:26 11/04/17 13:26 11/04/17 13:26 11/04/17 13:26 Discharge - Discharge Clinical Impression: Traumatic conjunctivitis Condition: Good Disposition: HOME, SELF-CARE Instructions: Conjunctivitis ([facility]), Eyedrop Use ([facility]) Additional Instructions: Return to the emergency room if worsens Follow-up with eye doctor tomorrow Wear safety goggles while mowing the grass Prescriptions: Besifloxacin HCl [Besivance Drops] 1 drop OS TID #1 bottle Referrals: BRADY COLON MD [ACTIVE STAFF] - Follow up as needed
== END 2017-11-04 14:21 | disposition home or self-care (01) ==
LOC: ER 13:11
DX: H10.89 Other conjunctivitis (principal); I10 Essential (primary) hypertension
CPT/HCPCS: 99283

== ENCOUNTER 2018-04-03 06:39 | Emergency (ER) | payer SELFPAY ==
[2018-04-03 07:11] LABS: ABSOLUTE LYMPHOCYTES (AUTO) 3.1 10^3/uL (0.5-4.7); ABSOLUTE MONOCYTES (AUTO) 0.6 10^3/uL (0.1-1.4); ABSOLUTE NEUT (AUTO) 8.3 10^3/uL (1.7-8.2); BASOPHILS % (AUTO) 0.2 % (0-2); EOSINOPHILS % (AUTO) 0.2 % (0-6); HEMATOCRIT 44.1 % (37.9-51.0); HEMOGLOBIN 15.3 g/dL (13.5-17.0); LYMPHOCYTES % (AUTO) 25.7 % (13-45); MEAN CORPUSCULAR HEMOGLOBIN 29.3 pg (27.0-33.4); MEAN CORPUSCULAR HGB CONC 34.7 g/dL (32.0-36.0); MEAN CORPUSCULAR VOLUME 84 fl (80-97); PLATELET COUNT 214 10^3/uL (150-450); RED BLOOD COUNT 5.23 10^6/uL (4.35-5.55); RED CELL DISTRIBUTION WIDTH 13.5 % (11.5-14.0); SEGMENTED NEUTROPHILS % (AUTO) 68.9 % (42-78); TOTAL CELLS COUNTED % (AUTO) 100 %
[2018-04-03 07:16] LABS: ALANINE AMINOTRANSFERASE 28 U/L (21-72); ALBUMIN 4.7 g/dL (3.5-5.0); ALKALINE PHOSPHATASE 72 U/L (38-126); ANION GAP 15 (5-19); ASPARTATE AMINO TRANSFERASE 23 U/L (17-59); BILIRUBIN,DIRECT 0.2 mg/dL (0.0-0.4); BILIRUBIN,TOTAL 0.5 mg/dL (0.2-1.3); BLOOD UREA NITROGEN 12 mg/dL (7-20); CARBON DIOXIDE 25 mmol/L (22-30); CHLORIDE 100 mmol/L (98-107); CREATINE KINASE 172 U/L (55-170); GLUCOSE 197 mg/dL (75-110); POTASSIUM 4.2 mmol/L (3.6-5.0); SODIUM 139.6 mmol/L (137-145); TOTAL PROTEIN 7.1 g/dL (6.3-8.2)
[2018-04-03 07:17] LABS: ACETAMINOPHEN < 10 ug/mL (10-30); SALICYLATE < 1.0 mg/dL (2.0-20.0)
[2018-04-03] MEDS: ONDANSETRON HCL INJ/PF 4 MG/2 ML SDV IV ONE ×2 (07:21→07:28)
[2018-04-03] MEDS ORDERED: ONDANSETRON 4 MG TAB.RAPDIS PO ONE (07:30)
--- NOTE | 2018-04-03 07:40 | ER Document Report ---
ED General - General Chief Complaint: Overdose Stated Complaint: POSSIBLE OVERDOSE Time Seen by Provider: 04/03/18 06:50 TRAVEL OUTSIDE OF THE [place] IN LAST 30 DAYS: No - HPI Notes: Patient presents to the emergency department via EMS after heroin overdose. He admits to using for the first time in nearly a year. He was found down, CPR was performed by bystanders. Upon EMS arrival he was administered Narcan and became more awake and alert. He denies the concrement use of any other drugs. He states he has been through rehab, is not interested in doing that again at this time. He states it was a mistake based on the people he spent time with last evening. He has some mild diffuse soreness in his chest, but denies any shortness of breath. He denies any suicidal or homicidal ideation. - Related Data Allergies/Adverse Reactions: No Known Allergies Allergy (Verified 04/03/18 06:44) Past Medical History - General Information source: Patient, Emergency Med Personnel - Social History Smoking Status: Never Smoker Frequency of alcohol use: Occasional Drug Abuse: Cocaine, Heroin Family History: CAD, Hypertension Patient has suicidal ideation: No Patient has homicidal ideation: No - Past Medical History Cardiac Medical History: Reports: Hx Heart Attack - x2 08/2016, Hx Hypertension - doesnt take med regularly in past 2 years Pulmonary Medical History: Denies: Hx Asthma Renal/ Medical History: Denies: Hx Peritoneal Dialysis Musculoskeletal Medical History: Reports Hx Arthritis - gout, Reports Hx Musculoskeletal Deformity, Reports Hx Musculoskeletal Trauma - Right knee Traumatic Medical History: Reports: Hx Fractures - Right knee Past Surgical History: Reports: Hx Appendectomy, Hx Cardiac Catheterization - Immunizations Immunizations up to date: Yes Hx Diphtheria, Pertussis, Tetanus Vaccination: Yes - Not UTD Review of Systems - Review of Systems Constitutional: No symptoms reported EENT: No symptoms reported Cardiovascular: Chest pain Respiratory: No symptoms reported Gastrointestinal: Nausea Musculoskeletal: No symptoms reported Skin: No symptoms reported Neurological/Psychological: No symptoms reported Physical Exam - Vital signs Vitals: Temp 98.2 F 04/03/18 06:39 Blood pressure 135/84, pulse 86. Respirations 20 nonlabored. O2 sats 97% on room air. Notes: Vital signs reviewed - Notes Notes: Vital signs reviewed, please refer to chart. Patient is normocephalic, atraum atic. Pupils equal round, reactive to light. Neck is supple without meningismus. Heart is regular rate and rhythm. Lungs are clear to auscultation bilaterally. Abdomen is soft, nontender, normoactive bowel sounds throughout. Extremities without cyanosis, clubbing, edema. Peripheral pulses are equal. Skin is warm and dry. The sequelae of IV drug abuse is noted on bilateral arms with both fresh and old track banks noted. No erythema, exudate, or induration appreciated. Patient is awake, alert, oriented x3. Cranial nerves II through XII grossly intact without focal neurological deficits. Strength is plus 5 out of 5 bilateral upper and lower extremities. Sensation is intact, reflexes symmetrical, gait within normal limits. Course - Re-evaluation Re-evalutation: 04/03/18 07:39 Patient presents emergency department for evaluation after heroin overdose. He is offered drug treatment programs, he declines at this time. He remained stable throughout the course of his stay. Laboratory investigations unremarkabl e. We will refer him to primary care for follow-up. He is to return the emergency department with worsening or new concerning symptoms of any sort. 04/03/18 09:56 Laboratory investigations are back at this time. His toxicology came back as positive for cocaine. Again patient declines any sort of rehabilitation for his drug issues. He has been vitally stable throughout the course of his stay. We will have him follow-up with primary care, return to the emergency department with worsening or new concerning symptoms. - Vital Signs Vital signs: Temp Pulse Resp BP Pulse Ox 98.2 F 17 131/81 H 95 04/03/18 06:39 04/03/18 09:01 04/03/18 09:00 04/03/18 09:01 - Laboratory Result Diagrams: 04/03/18 06:43 04/03/18 06:43 Laboratory results interpreted by me: 04/03/18 04/03/18 04/03/18 06:43 06:43 09:00 WBC 12.0 H Absolute Neutrophils 8.3 H Glucose 197 H Creatine Kinase 172 H Urine Blood MODERATE H Salicylates < 1.0 L Acetaminophen < 10 L Discharge - Discharge Clinical Impression: Heroin overdose Qualifiers: Injury intent: accidental or unintentional Condition: Stable Disposition: HOME, SELF-CARE Instructions: Overdose ([facility]) Additional Instructions: Avoid using drugs. Return to the emergency department with worsening or new concerning symptoms. Otherwise, follow-up with her primary care physician this week.
--- NOTE | 2018-04-03 07:50 | RADIOLOGY REPORT (SQ) ---
Chest single view on 04/03/2018 at 7:37 AM CLINICAL INDICATION: Overdose, status post CPR COMPARISON: 12/25/2014 FINDINGS: The lungs are clear. Cardiac, hilar and mediastinal contours are within normal limits. Pulmonary vascularity is within normal limits. No bony abnormality is noted. IMPRESSION: No active disease.
[2018-04-03 09:25] LABS: APPEARANCE,URINE SLIGHTLY-CLOUDY; BILIRUBIN,URINE NEGATIVE (NEGATIVE); COLOR,URINE YELLOW; GLUCOSE, URINE NEGATIVE (NEGATIVE); KETONES,URINE NEGATIVE (NEGATIVE); LEUKOCYTE ESTERASE,URINE NEGATIVE (NEGATIVE); NITRITE,URINE NEGATIVE (NEGATIVE); PROTEIN,URINE NEGATIVE (NEGATIVE); URINE SPECIFIC GRAVITY 1.009; UROBILINOGEN,URINE NEGATIVE mg/dL (<2.0)
[2018-04-03 09:34] LABS: URINE AMPHETAMINES SCREEN NEGATIVE; URINE BARBITURATES SCREEN NEGATIVE; URINE BENZODIAZEPINES SCREEN NEGATIVE; URINE COCAINE SCREEN UNCONFIRMED POSITIVE; URINE MARIJUANA (THC) SCREEN NEGATIVE; URINE METHADONE SCREEN NEGATIVE; URINE PHENCYCLIDINE SCREEN NEGATIVE
[2018-04-03 10:13] VITALS: BP 127/77
== END 2018-04-03 10:21 | disposition home or self-care (01) ==
LOC: ER 06:39
DX: T40.1X1A Poisoning by heroin, accidental (unintentional), initial encounter (principal); Y92.59 Other trade areas as the place of occurrence of the external cause; F14.10 Cocaine abuse, uncomplicated; R07.9 Chest pain, unspecified; R11.0 Nausea; I10 Essential (primary) hypertension; I25.2 Old myocardial infarction
CPT/HCPCS: 99284; 36415; 82550; 80307 ×3; 85025; 80053; 81001; 71045; S0119; J2405

== ENCOUNTER 2018-05-19 08:48 | Emergency (ER) | payer SELFPAY ==
[2018-05-19 08:54] VITALS: BP 137/93
[2018-05-19] MEDS ORDERED: COLCHICINE 0.6 MG TABLET PO ONE (09:22)
--- NOTE | 2018-05-19 09:33 | ER Document Report ---
HPI - HPI Patient complains to provider of: ankle pain Time Seen by Provider: 05/19/18 09:11 Onset: Yesterday Onset/Duration: Worse Quality of pain: Sharp Pain Level: 2 Context: Patient complains of left ankle pain that started yesterday that worsened today. Patient denies any injury. Patient does report a history of gout but typically has gout involving his first metatarsal not his ankle. Associated Symptoms: Other - Left ankle pain. denies: Fever Exacerbated by: Standing, Movement, Walking Relieved by: Denies Similar symptoms previously: No Recently seen / treated by doctor: No - ROS ROS below otherwise negative: Yes Systems Reviewed and Negative: Yes All other systems reviewed and negative - CONSTITUTIONAL Constitutional: DENIES: Fever, Chills - NEURO Neurology: DENIES: Weakness - REPRODUCTIVE Reproductive: DENIES: : - MUSCULOSKELETAL Musculoskeletal: REPORTS: Extremity pain, Swelling - DERM Skin Color: Erythema Skin Problems: None Past Medical History - General Information source: Patient - Social History Smoking Status: Never Smoker Frequency of alcohol use: Occasional Drug Abuse: None Occupation: [employer] Family History: CAD, Hypertension - Past Medical History Cardiac Medical History: Reports: Hx Heart Attack - x2 08/2016 patient reports due to stress Pulmonary Medical History: Denies: Hx Asthma Renal/ Medical History: Denies: Hx Peritoneal Dialysis Musculoskeletal Medical History: Reports Hx Arthritis - gout, Reports Hx Musculoskeletal Deformity, Reports Hx Musculoskeletal Trauma - Right knee Traumatic Medical History: Reports: Hx Fractures - Right knee Past Surgical History: Reports: Hx Appendectomy, Hx Cardiac Catheterization - Immunizations Immunizations up to date: Yes Hx Diphtheria, Pertussis, Tetanus Vaccination: Yes - Not UTD Vertical Provider Document - CONSTITUTIONAL Agree With Documented VS: Yes Exam Limitations: No Limitations General Appearance: WD/WN, No Apparent Distress - INFECTION CONTROL TRAVEL OUTSIDE OF THE [place] IN LAST 30 DAYS: No - HEENT HEENT: Atraumatic, Normocephalic - NECK Neck: Normal Inspection - RESPIRATORY Respiratory: No Respiratory Distress - CARDIOVASCULAR Pulses: Normal: Dorsalis pedis - MUSCULOSKELETAL/EXTREMETIES Musculoskeletal/Extremeties: MAEW, Tender - Generalized tenderness to left ankle with 1+ edema, equal tender with minimal palpation and warm to touch. - NEURO Level of Consciousness: Awake, Alert, Appropriate Motor/Sensory: No Motor Deficit, No Sensory Deficit - DERM Integumentary: Warm, Dry, No Rash Course - Re-evaluation Re-evalutation: 05/19/18 09:42 Patient without any fever and no history of trauma. Patient symptoms to look typical of presentation consistent with gout. Discussed worsening symptoms to return. - Vital Signs Vital signs: Temp Pulse Resp BP Pulse Ox 97.9 F 90 16 137/93 H 95 05/19/18 08:53 05/19/18 08:53 05/19/18 08:53 05/19/18 08:53 05/19/18 08:53 Discharge - Discharge Clinical Impression: Gout attack Qualifiers: Gout site: ankle Gout etiology: unspecified cause Laterality: left Qualified Code(s): M10.9 - Gout, unspecified Condition: Stable Disposition: HOME, SELF-CARE Instructions: Gout ([facility]), Gout Diet ([facility]) Additional Instructions: Return immediately for any new or worsening symptoms Followup with your primary care provider, call tomorrow to make a followup appointment Prescriptions: Colchicine [Colcrys 0.6 mg Tablet] 0.6 mg PO NOW #1 tablet Prednisone [Deltasone 20 mg Tablet] 3 tab PO DAILY 5 Days tablet Forms: Return to Work Referrals: SYDNEY COTE MD [EMERITUS] - Follow up tomorrow
== END 2018-05-19 09:56 | disposition home or self-care (01) ==
LOC: ER 08:48
DX: M10.9 Gout, unspecified (principal); M25.572 Pain in left ankle and joints of left foot; I25.2 Old myocardial infarction
CPT/HCPCS: 99283

== ENCOUNTER 2019-04-03 00:54 | Emergency (ER) | payer SELFPAY ==
[2019-04-03 03:07] LABS: ABSOLUTE MONOCYTES (AUTO) 0.7 10^3/uL (0.1-1.4); ABSOLUTE NEUT (AUTO) 4.5 10^3/uL (1.7-8.2); BASOPHILS % (AUTO) 0.3 % (0-2); EOSINOPHILS % (AUTO) 0.6 % (0-6); HEMATOCRIT 47.1 % (37.9-51.0); HEMOGLOBIN 16.5 g/dL (13.5-17.0); LYMPHOCYTES % (AUTO) 27.7 % (13-45); MEAN CORPUSCULAR HGB CONC 35.1 g/dL (32.0-36.0); MEAN CORPUSCULAR VOLUME 88 fl (80-97); MONOCYTES % (AUTO) 9.5 % (3-13); PLATELET COUNT 230 10^3/uL (150-450); RED BLOOD COUNT 5.33 10^6/uL (4.35-5.55); RED CELL DISTRIBUTION WIDTH 14.1 % (11.5-14.0); SEGMENTED NEUTROPHILS % (AUTO) 61.9 % (42-78); TOTAL CELLS COUNTED % (AUTO) 100 %; WHITE BLOOD COUNT 7.2 10^3/uL (4.0-10.5)
[2019-04-03 03:27] LABS: ALBUMIN 4.7 g/dL (3.5-5.0); ALKALINE PHOSPHATASE 55 U/L (38-126); ANION GAP 11 (5-19); ASPARTATE AMINO TRANSFERASE 36 U/L (17-59); BILIRUBIN,TOTAL 0.5 mg/dL (0.2-1.3); BLOOD UREA NITROGEN 11 mg/dL (7-20); CALCIUM 9.1 mg/dL (8.4-10.2); CARBON DIOXIDE 31 mmol/L (22-30); CHLORIDE 96 mmol/L (98-107); CREATINE KINASE 312 U/L (55-170); GLUCOSE 132 mg/dL (75-110); POTASSIUM 4.6 mmol/L (3.6-5.0); TOTAL PROTEIN 7.4 g/dL (6.3-8.2)
[2019-04-03 03:37] LABS: CREATINE KINASE MB 2.18 ng/mL (<4.55); TROPONIN I 0.014 ng/mL
[2019-04-03] MEDS ORDERED: ASPIRIN 81 MG TABLET, CHEWABLE PO ONE (05:37)
--- NOTE | 2019-04-03 05:39 | ER Document Report ---
ED Medical Screen (RME) - General Chief Complaint: Chest Pain Stated Complaint: CHEST AND NECK PAIN Primary Care Provider: SYDNEY COTE MD [Primary Care Provider] - Follow up as needed Notes: 38-year-old male with chief complaint of chest pain. Symptoms started just prior to arrival, he states he felt a sharp pain in his neck and in the side of his chest. He states symptoms are completely resolved now. He states about 24 hours ago he was partying and he did do some cocaine. He states that he had a heart attack in 2017 with elevated troponin but they had a negative cardiac cath. He is supposed to be on aspirin and lisinopril but he takes no medications. He vapes. He denies medical history otherwise. TRAVEL OUTSIDE OF THE [place] 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/2016 patient reports due to stress, Hx Hypertension - doesnt take med regularly in past 2 years Pulmonary Medical History: Denies: Hx Asthma Renal/ Medical History: Denies: Hx Peritoneal Dialysis Musculoskeltal Medical History: Reports Hx Arthritis - gout, Reports Hx Musculoskeletal Deformity, Reports Hx Musculoskeletal Trauma - Right knee Traumatic Medical History: Reports: Hx Fractures - Right knee Past Surgical History: Reports: Hx Appendectomy, Hx Cardiac Catheterization - Immunizations Immunizations up to date: Yes Hx Diphtheria, Pertussis, Tetanus Vaccination: Yes - Not UTD Physical Exam - Vital signs Vitals: Temp Pulse Resp BP Pulse Ox 97.9 F 101 H 20 161/113 H 97 04/03/19 01:07 04/03/19 01:07 04/03/19 01:07 04/03/19 01:07 04/03/19 01:07 - General General appearance: Appears well In distress: None - Cardiovascular Rhythm: Regular. No: Tachycardia Heart sounds: Normal auscultation, S1 appreciated, S2 appreciated Course - Re-evaluation Re-evalutation: I have greeted and performed a rapid initial assessment of this patient. A comprehensive ED assessment and evaluation of the patient, analysis of test results and completion of the medical decision making process will be conducted by additional ED providers. - Vital Signs Vital signs: Temp Pulse Resp BP Pulse Ox 97.9 F 101 H 19 156/105 H 98 04/03/19 01:07 04/03/19 01:07 04/03/19 04:40 04/03/19 04:40 04/03/19 04:55 - Laboratory Result Diagrams: 04/03/19 02:42 04/03/19 02:42 Laboratory results interpreted by me: 04/03/19 04/03/19 02:42 02:42 RDW 14.1 H Chloride 96 L Carbon Dioxide 31 H Glucose 132 H Creatine Kinase 312 H Doctor's Discharge - Discharge Referrals: SYDNEY COTE MD [Primary Care Provider] - Follow up as needed
--- NOTE | 2019-04-03 06:44 | ER Document Report ---
ED General - General Chief Complaint: Chest Pain Stated Complaint: CHEST AND NECK PAIN Time Seen by Provider: 04/03/19 05:39 Primary Care Provider: SYDNEY COTE MD [Primary Care Provider] - Follow up as needed TRAVEL OUTSIDE OF THE [place] IN LAST 30 DAYS: No - HPI Notes: Patient is a 38-year-old male with a history of NH who presents to the emergency department for evaluation of chest pain. He states he woke from sleep with it. He described feeling a "elephant sitting on his chest" with the left side of his chest with radiation up into the left neck. He states he felt slightly short of breath and his vision was blurry during this period. He states it lasted about 10 to 15 minutes. Symptoms resolved prior to his arrival here in the emergency department. He states he felt similar to when he had an NH in the past. The patient does have a history of cocaine abuse, states last use was the night before last. He is currently pain-free. - Related Data Allergies/Adverse Reactions: No Known Allergies Allergy (Verified 04/03/18 06:44) Past Medical History - General Information source: Patient - Vape - Social History Smoking Status: Current Every Day Smoker Frequency of alcohol use: Social Drug Abuse: Cocaine Family History: CAD, Hypertension Patient has suicidal ideation: No Patient has homicidal ideation: No - Past Medical History Cardiac Medical History: Reports: Hx Heart Attack - x2 08/2016 patient reports due to stress, Hx Hypertension - doesnt take med regularly in past 2 years Pulmonary Medical History: Denies: Hx Asthma Renal/ Medical History: Denies: Hx Peritoneal Dialysis Musculoskeletal Medical History: Reports Hx Arthritis - gout, Reports Hx Musc uloskeletal Deformity, Reports Hx Musculoskeletal Trauma - Right knee Traumatic Medical History: Reports: Hx Fractures - Right knee Past Surgical History: Reports: Hx Appendectomy, Hx Cardiac Catheterization - Immunizations Immunizations up to date: Yes Hx Diphtheria, Pertussis, Tetanus Vaccination: Yes - Not UTD Review of Systems - Review of Systems Cardiovascular: See HPI -: Yes All other systems reviewed and negative Physical Exam - Vital signs Vitals: Temp Pulse Resp BP Pulse Ox 97.9 F 101 H 20 161/113 H 97 04/03/19 01:07 04/03/19 01:07 04/03/19 01:07 04/03/19 01:07 04/03/19 01:07 - Notes Notes: This is a pleasant 38-year-old male, who appears his stated age in no acute distress. Vital signs reviewed, please refer to chart. Head is normocephalic, atraumatic. Pupils equal round, reactive to light. Neck is supple without meningismus. Heart is regular rate and rhythm. Lungs are clear to auscultation bilaterally. Abdomen is soft, nontender, normoactive bowel sounds throughout. Extremities without cyanosis, clubbing. Posterior calves are nontender. Peripheral pulses are equal. Skin is warm and dry. Patient is awake, alert, neurological exam is nonfocal. Course - Re-evaluation Re-evalutation: 04/03/19 06:40 Patient presents to the emergency department for evaluation. Given his history, we talked extensively about the dangers of cocaine use. We also talked about compliance with his antihypertensive medication. He voiced understanding to all of this. He states he just stopped taking his medicine, is amenable to going back on the lisinopril. He is unsure of the dosage, so we will start with just 10 mg. He does see Dr. Faustino Terry, he will follow-up with him. Otherwise, the patient has been chest pain-free throughout the course of his stay. His enzymes are negative x2. The patient feels stable and comfortable with being discharged. He understands he should abstain from cocaine use, is to return to the ED with worsening or new concerning symptoms of any sort. - Vital Signs Vital signs: Temp Pulse Resp BP Pulse Ox 97.9 F 101 H 21 H 143/97 H 96 04/03/19 01:07 04/03/19 01:07 04/03/19 06:01 04/03/19 05:01 04/03/19 06:01 - Laboratory Result Diagrams: 04/03/19 02:42 04/03/19 02:42 Laboratory results interpreted by me: 04/03/19 04/03/19 02:42 02:42 RDW 14.1 H Chloride 96 L Carbon Dioxide 31 H Glucose 132 H Creatine Kinase 312 H - Diagnostic Test Radiology reviewed: Reports reviewed - EKG Interpretation by Me Additional EKG results interpreted by me: 04/03/19 06:41 Sinus mechanism with a rate of 91 bpm. Normal axis and intervals. No acute ST changes concerning for ischemia or infarction. Discharge - Discharge Clinical Impression: Cocaine abuse Chest pain Qualifiers: Chest pain type: unspecified Qualified Code(s): R07.9 - Chest pain, unspecified Condition: Stable Disposition: HOME, SELF-CARE Instructions: Chest Pain of Unclear Cause ([facility]), Cocaine Abuse ([facility]) Additional Instructions: Please take the lisinopril as prescribed. Follow-up with your primary care provider this week. Abstain from the use of illicit drugs. Return to the emergency department if you develop worsening or new concerning symptoms of any sort, or if your pain returns. Referrals: SYDNEY COTE MD [Primary Care Provider] - Follow up as needed
[2019-04-03 06:54] VITALS: BP 157/108
[2019-04-03 07:11] LABS: URINE BARBITURATES SCREEN NEGATIVE; URINE BENZODIAZEPINES SCREEN NEGATIVE; URINE MARIJUANA (THC) SCREEN NEGATIVE; URINE METHADONE SCREEN NEGATIVE; URINE PHENCYCLIDINE SCREEN NEGATIVE
[2019-04-03 07:21] LABS: URINE COCAINE SCREEN UNCONFIRMED POSITIVE
--- NOTE | 2019-04-03 08:26 | EKG REPORT ---
SEVERITY:- NORMAL ECG - SINUS RHYTHM : Confirmed by: Cherelle Escobar 03-Apr-2019 08:25:18
== END 2019-04-03 06:56 | disposition home or self-care (01) ==
LOC: ER 00:54
DX: R07.9 Chest pain, unspecified (principal); F14.10 Cocaine abuse, uncomplicated; M54.2 Cervicalgia; R06.02 Shortness of breath; H53.8 Other visual disturbances; I10 Essential (primary) hypertension; I25.2 Old myocardial infarction; F17.290 Nicotine dependence, other tobacco product, uncomplicated; Z82.49 Family history of ischemic heart disease and other diseases of the circulatory system
CPT/HCPCS: 36415; 80053; 80307; 82550; 82553; 84484; 85025; 93005; 93010; 99285

== ENCOUNTER 2019-06-20 13:00 | Emergency (ER) | payer SELFPAY ==
--- NOTE | 2019-06-20 13:51 | ER Document Report ---
ED GI/ - General Chief Complaint: Abdominal Pain Stated Complaint: LEFT SHOULDER PAIN Time Seen by Provider: 06/20/19 13:24 Primary Care Provider: SYDNEY COTE MD [Primary Care Provider] - Follow up as needed Notes: CHIEF COMPLAINT: Lower abdominal pain HPI: 38-year-old male presenting to the emergency department complaining of 4 days of a constant and progressively worsening lower abdominal pain. Patient s tates it began after eating on the weekend and has just worsened. No blood in the stool currently but states several weeks ago he did notice some blood that was bright red in his stool. Denies rectal pain. Denies fever. Denies nausea vomiting but does report decreased appetite. Patient also states that he has left scapular pain over the last 2 weeks. Does not know if he injured himself but does work outside. No chest pain shortness of breath. The pain in the left scapular region is specific to movement of the left arm or palpation of the back. He has not taken any medications for the symptoms but wanted to have it evaluated today. ROS: See HPI - all other systems were reviewed and are otherwise negative Constitutional: no fever Eyes: no drainage, no blurred vision ENT: no runny nose, no sore throat Cardiovascular: no chest pain Resp: no SOB, no cough GI: no vomiting, no diarrhea, + abdominal pain : no dysuria Integumentary: no rash Allergy: no hives Musculoskeletal: + extremity pain or swelling Neurological: no numbness/tingling, no weakness MEDICATIONS: I agree with the patient medications as charted by the RN. ALLERGIES: I agree with the allergies as charted by the RN. PAST MEDICAL HISTORY/PAST SURGICAL HISTORY: Reviewed and agree as charted by RN. SOCIAL HISTORY: Reviewed and agree as charted by RN. FAMILY HISTORY: No significant familial comorbid conditions directly related to patient complaint EXAM: Reviewed vital signs as charted by RN. CONSTITUTIONAL: Alert and oriented and responds appropriately to questions. Well-appearing; well-nourished, mild distress secondary to pain HEAD: Normocephalic; atraumatic EYES: PERRL; Conjunctivae clear, sclerae non-icteric ENT: normal nose; no rhinorrhea; moist mucous membranes; pharynx without lesions noted, no uvula edema or deviation, no tonsillar hypertrophy, phonation normal NECK: Supple without meningismus; non-tender; no cervical lymphadenopathy, no masses CARD: RRR; no murmurs, no clicks, no rubs, no gallops; symmetric distal pulses RESP: Normal chest excursion without splinting or tachypnea; breath sounds clear and equal bilaterally; no wheezes, no rhonchi, no rales, pulse oximetry ABD/GI: Normal bowel sounds; non-distended; soft, moderate tenderness with slight guarding in the suprapubic left lower quadrant region on palpation; no palpable organomegaly or masses. BACK: The back appears normal and is non-tender to palpation directly over the thoracic cervical and lumbar spine patient does have moderate muscular tenderness in the left scapular region medial to the scapula with palpation and also with range of motion of the left upper extremity, there is no CVA tenderness EXT: Normal ROM in all joints; non-tender to palpation; no cyanosis, no effusions, no edema SKIN: Normal color for age and race; warm; dry; good turgor; no acute lesions noted NEURO: Moves all extremities equally; Motor and sensory function intact PSYCH: The patient's mood and manner are appropriate. Grooming and personal hygiene are appropriate. MDM: 38-year-old male primarily presenting for abdominal pain suspect diverticulitis. Will obtain lab work CT imaging. Patient also with left scapular pain that I suspect is likely muscular in nature it is completely reproducible with palpation or movement, limited when patient is still. Low suspicion for ACS at this time. TRAVEL OUTSIDE OF THE [place] IN LAST 30 DAYS: No - Related Data Allergies/Adverse Reactions: No Known Allergies Allergy (Verified 06/20/19 13:20) Past Medical History - Social History Smoking Status: Current Some Day Smoker Frequency of alcohol use: Occasional Family History: CAD, Hypertension Patient has homicidal ideation: No - Past Medical History Cardiac Medical History: Reports: Hx Heart Attack - x2 08/2016 patient reports due to stress, Hx Hypertension - doesnt take med regularly in past 2 years Pulmonary Medical History: Denies: Hx Asthma Renal/ Medical History: Denies: Hx Peritoneal Dialysis Musculoskeletal Medical History: Reports Hx Arthritis - gout, Reports Hx Musculoskeletal Deformity, Reports Hx Musculoskeletal Trauma - Right knee Traumatic Medical History: Reports: Hx Fractures - Right knee Past Surgical History: Reports: Hx Appendectomy, Hx Cardiac Catheterization - Immunizations Immunizations up to date: Yes Hx Diphtheria, Pertussis, Tetanus Vaccination: Yes - Not UTD Physical Exam - Vital signs Vitals: Temp Pulse Resp BP Pulse Ox 98.4 F 96 18 142/98 H 98 06/20/19 13:20 06/20/19 13:20 06/20/19 13:20 06/20/19 13:20 06/20/19 13:20 Course - Re-evaluation Re-evalutation: 06/20/19 16:12 CT shows acute diverticulitis without abscess or perforation. Will give Cipro Flagyl, pain management, follow-up GI - Vital Signs Vital signs: Temp Pulse Resp BP Pulse Ox 98.4 F 96 18 142/98 H 98 06/20/19 13:20 06/20/19 13:20 06/20/19 13:20 06/20/19 13:20 06/20/19 13:20 - Laboratory Result Diagrams: 06/20/19 14:25 06/20/19 14:25 Laboratory results interpreted by me: 06/20/19 06/20/19 06/20/19 13:20 14:25 14:25 WBC 16.7 H Absolute Neuts (auto) 13.1 H Seg Neutrophils % 78.7 H Sodium 134.8 L Chloride 96 L Urine Blood SMALL H Discharge - Discharge Clinical Impression: Acute diverticulitis of intestine Condition: Stable Disposition: HOME, SELF-CARE Additional Instructions: Your CT imaging suggested diverticulitis which is an inflammation in the colon as discussed. Take the antibiotics as prescribed. Take the pain medication as prescribed do not drive if taking Percocet for pain. Zofran for nausea. You will need to follow-up closely with gastroenterology for further evaluation and treatment call for appointment. If you develop uncontrolled pain at home or develop fever greater than 101 return for reevaluation Prescriptions: Ciprofloxacin HCl [Cipro 500 mg Tablet] 500 mg PO BID #20 tablet Metronidazole [Flagyl 500 mg Tablet] 500 mg PO BID #20 tablet Oxycodone HCl/Acetaminophen [Percocet 5-325 mg Tablet] 1 tab PO Q4H PRN #15 tab PRN Reason: Ondansetron [Zofran Odt 4 mg Tablet] 1 - 2 tab PO Q4H PRN #15 tab.rapdis PRN Reason: For Nausea/Vomiting Referrals: SYDNEY COTE MD [Primary Care Provider] - Follow up as needed BANDAR ECHAVARRIA MD [ACTIVE STAFF] - Follow up as needed
[2019-06-20 14:36] LABS: ABSOLUTE BASOPHILS # (AUTO) 0.1 10^3/uL (0.0-0.2); ABSOLUTE LYMPHOCYTES (AUTO) 2.2 10^3/uL (0.5-4.7); ABSOLUTE MONOCYTES (AUTO) 1.2 10^3/uL (0.1-1.4); ABSOLUTE NEUT (AUTO) 13.1 10^3/uL (1.7-8.2); BASOPHILS % (AUTO) 0.4 % (0-2); EOSINOPHILS % (AUTO) 0.2 % (0-6); HEMATOCRIT 43.6 % (37.9-51.0); HEMOGLOBIN 15.5 g/dL (13.5-17.0); LYMPHOCYTES % (AUTO) 13.4 % (13-45); MEAN CORPUSCULAR HEMOGLOBIN 30.1 pg (27.0-33.4); MEAN CORPUSCULAR HGB CONC 35.6 g/dL (32.0-36.0); MEAN CORPUSCULAR VOLUME 85 fl (80-97); MONOCYTES % (AUTO) 7.3 % (3-13); PLATELET COUNT 213 10^3/uL (150-450); RED BLOOD COUNT 5.15 10^6/uL (4.35-5.55); SEGMENTED NEUTROPHILS % (AUTO) 78.7 % (42-78); TOTAL CELLS COUNTED % (AUTO) 100 %; WHITE BLOOD COUNT 16.7 10^3/uL (4.0-10.5)
[2019-06-20 15:02] LABS: ALBUMIN 4.8 g/dL (3.5-5.0); ALKALINE PHOSPHATASE 77 U/L (38-126); ANION GAP 9 (5-19); ASPARTATE AMINO TRANSFERASE 21 U/L (17-59); BILIRUBIN,TOTAL 0.8 mg/dL (0.2-1.3); BLOOD UREA NITROGEN 12 mg/dL (7-20); CALCIUM 9.8 mg/dL (8.4-10.2); CARBON DIOXIDE 30 mmol/L (22-30); CHLORIDE 96 mmol/L (98-107); GLUCOSE 101 mg/dL (75-110); POTASSIUM 4.1 mmol/L (3.6-5.0); TOTAL PROTEIN 7.8 g/dL (6.3-8.2)
[2019-06-20] MEDS ORDERED: CIPROFLOXACIN HCL 500 MG TABLET PO ONE (16:02)
[2019-06-20] MEDS ORDERED: METRONIDAZOLE 500 MG TABLET PO ONE (16:02)
[2019-06-20 16:03] LABS: ADD MANUAL MICROSCOPIC YES; APPEARANCE,URINE CLEAR; BILIRUBIN,URINE NEGATIVE (NEGATIVE); COLOR,URINE YELLOW; GLUCOSE, URINE NEGATIVE (NEGATIVE); KETONES,URINE NEGATIVE (NEGATIVE); LEUKOCYTE ESTERASE,URINE NEGATIVE (NEGATIVE); NITRITE,URINE NEGATIVE (NEGATIVE); PROTEIN,URINE NEGATIVE (NEGATIVE); URINE SPECIFIC GRAVITY 1.015; UROBILINOGEN,URINE NEGATIVE mg/dL (<2.0)
[2019-06-20 16:04] LABS: RBC,URINE 0-1 /HPF; WBC,URINE 0-1 /HPF
--- NOTE | 2019-06-20 16:10 | RADIOLOGY REPORT (SQ) ---
EXAM DESCRIPTION: CT ABD/PELVIS WITH IV ONLY IMAGES COMPLETED DATE/TIME: 06/20/2019 3:55 pm REASON FOR STUDY: eval for diverticulitis COMPARISON: 05/04/2017 TECHNIQUE: CT scan of the abdomen and pelvis performed using helical scanning technique with dynamic intravenous contrast injection. No oral contrast. Images reviewed with lung, soft tissue, and bone windows. Reconstructed coronal and sagittal MPR images reviewed. Delayed images for evaluation of the urinary system also acquired. All images stored on PACS. All CT scanners at this facility use dose modulation, iterative reconstruction, and/or weight based d osing when appropriate to reduce radiation dose to as low as reasonably achievable (ALARA). [facility]: Dose Right [facility]: CareDose [facility]: Dose Right [facility]: Teradose 4D [facility]: Vartopia CONTRAST TYPE AND DOSE: contrast/concentration: Isovue 350.00 mg/ml; Total Contrast Delivered: 100.0 ml; Total Saline Delivered: 72.0 ml RENAL FUNCTION: BUN 12, creatinine 0.82 RADIATION DOSE: CT Rad equipment meets quality standard of care and radiation dose reduction techniq ues were employed. CTDIvol: 14.8 - 19.0 mGy. DLP: 1984 mGy-cm.. LIMITATIONS: None. FINDINGS: LOWER CHEST: No significant findings. No nodules or infiltrates. LIVER: Normal size. No masses. No dilated ducts. SPLEEN: Normal size. No focal lesions. PANCREAS: No masses. No significant calcifications. No adjacent inflammation or peripancreatic fluid collections. Pancreatic duct not dilated. GALLBLADDER: No identified stones by CT criteria. No inflammatory changes to suggest cholecystitis. ADRENAL GLANDS: No significant masses or asymmetry. RIGHT KIDNEY AND URETER: No solid masses. No significant calcifications. No hydronephrosis or hyd roureter. LEFT KIDNEY AND URETER: No solid masses. No significant calcifications. No hydronephrosis or hydr oureter. AORTA AND VESSELS: No aneurysm. No dissection. Renal arteries, SMA, celiac without stenosis. RETROPERITONEUM: No retroperitoneal adenopathy, hemorrhage or masses. BOWEL AND PERITONEAL CAVITY: Inflammatory changes in the left lower quadrant consistent with divertic ulitis. Scattered diverticuli throughout the descending colon. No focal abscess or fluid collection . No free air. APPENDIX: Surgically absent. PELVIS: Trace amount of free fluid in the pelvis. ABDOMINAL WALL: Small umbilical hernia containing omental fat only. BONES: No significant or acute findings. OTHER: No other significant finding. IMPRESSION: Inflammatory changes in the left lower quadrant consistent with acute diverticulitis inv olving the proximal sigmoid colon. No focal abscess or fluid collection. TECHNICAL DOCUMENTATION: JOB ID: [id number] Quality ID # [id number]: Final reports with documentation of one or more dose reduction techniques (e.g., Au tomated exposure control, adjustment of the mA and/or kV according to patient size, use of iterative reconstruction technique) 2010 [employer]- All Rights Reserved Reading location - IP/workstation name: [email or web address]
[2019-06-20 17:00] VITALS: BP 147/97
--- NOTE | 2019-06-21 08:39 | EKG REPORT ---
SEVERITY:- NORMAL ECG - SINUS RHYTHM : Confirmed by: Cherelle Escobar 21-Jun-2019 08:38:25
== END 2019-06-20 17:01 | disposition home or self-care (01) ==
LOC: ER 13:00
DX: K57.92 Diverticulitis of intestine, part unspecified, without perforation or abscess without bleeding (principal); R10.9 Unspecified abdominal pain; M25.512 Pain in left shoulder; R10.30 Lower abdominal pain, unspecified; R63.0 Anorexia; F17.200 Nicotine dependence, unspecified, uncomplicated; I25.2 Old myocardial infarction; I10 Essential (primary) hypertension
CPT/HCPCS: 36415; 74177; 80053; 81001; 83690; 85025; 93005; 93010; 99284

== ENCOUNTER 2019-08-16 21:41 | Emergency (ER) | payer SELFPAY ==
[2019-08-16 21:50] VITALS: BP 150/93
== END 2019-08-17 01:44 | disposition left against medical advice (07) ==
LOC: ER 21:41
DX: Z53.21 Procedure and treatment not carried out due to patient leaving prior to being seen by health care provider (principal)